=== PATIENT | male | born 1940 | race Caucasian/White ===

== ENCOUNTER 2019-03-09 05:41 | Day surgery (SDC) | payer MEDICARE, BC ==
[2019-03-02 12:32] LABS: BASOPHILS # (AUTO) 0.1 X10'3 (0-0.2); EOSINOPHILS # (AUTO) 0.4 X10'3 (0-0.9); EOSINOPHILS % (AUTO) 7.3 % (0-6); LYMPHOCYTES # (AUTO) 1.5 X10'3 (1.1-4.8); LYMPHOCYTES % (AUTO) 25.3 % (21-51); MEAN CORPUSCULAR HEMOGLOBIN 31.9 PG (27.0-31.0); MEAN CORPUSCULAR HGB CONC 33.3 g/dL (33.0-36.5); MEAN CORPUSCULAR VOLUME 95.9 FL (78-98); MEAN PLATELET VOLUME 8.1 FL (7.4-10.4); MONOCYTES # (AUTO) 0.8 X10'3 (0-0.9); MONOCYTES % (AUTO) 12.6 % (2-12); NEUTROPHILS # (AUTO) 3.2 X10'3 (1.8-7.7); NEUTROPHILS % (AUTO) 53.8 % (42-75); PRE OP HEMATOCRIT 42.3 % (42.0-52.0); PRE OP HEMOGLOBIN 14.1 g/dL (14.0-17.9); PRE OP PLATELET COUNT 303 X10'3 (140-440); RED BLOOD COUNT 4.41 X10'6 (4.70-6.10); RED CELL DISTRIBUTION WIDTH 13.9 % (11.5-14.5)
[2019-03-02 12:43] LABS: ALBUMIN 3.4 G/DL (3.4-5.0); ALBUMIN/GLOBULIN RATIO 0.9 (1.1-1.5); ALKALINE PHOSPHATASE 94 IU/L (46-116); BLOOD UREA NITROGEN 14 MG/DL (7-18); BUN/CREATININE RATIO 16.7 (5.4-32.0); CALCIUM 8.9 MG/DL (8.5-10.1); CHLORIDE 104 MMOL/L (99-107); CREATININE 0.84 MG/DL (0.60-1.10); PRE OP ALT 42 U/L (30-65); PRE OP ANION GAP 3 (8-16); PRE OP AST 32 U/L (10-37); PRE OP BILIRUB, TOTAL 0.8 MG/DL (0.0-1.0); PRE OP GLUCOSE 96 MG/DL (70-104); PRE OP POTASSIUM 3.8 MMOL/L (3.4-5.1); PRE OP SODIUM 140 MMOL/L (135-145); TOTAL CARBON DIOXIDE 32.7 MMOL/L (24-32); eGFR 89 ML/MIN
[2019-03-02 12:53] LABS: PRE OP INR 1.3 INR; PRE OP PROTIME 12.6 SECONDS (9.0-12.0)
[2019-03-09] VITALS (7 sets, daily range): BP systolic 108–119; BP diastolic 69–78
[~2019-03-09] VITALS: Ht 182.9 cm; Wt 76.4 kg
[~2019-03-09 05:41] MED LIST: AMIO200T54 PO; ATOR80TA PO; CALC-995 PO; CYAN100020 PO; EZET10TA14 PO; FOLI1TAB16 PO; NIA500ERT PO; PROP80CA PO; PSYL1CAP3 PO; RIVA20TA PO; VITA400C19 PO; VITC500T PO
[2019-03-09] MEDS ORDERED: ringers solution, lacted 1,000 ML IV SCH ×2 (05:45→08:05)
[2019-03-09] MEDS ORDERED: DOCUMENT DATE & TIME OF BETA-BLOCKER PO ONE (05:45)
[2019-03-09] MEDS ORDERED: ceFAZolin 1GM/D5W- ADD-VANTAGE 50 ML IV ONE (05:45)
[2019-03-09] MEDS ORDERED: famotidine 20mg tablet PO ONE (05:45)
[2019-03-09] MEDS ORDERED: LIDOcaine 1% (10mg/ml) 2ml vial ONE (05:55)
[2019-03-09 06:37] LABS: PRE OP PARTIAL THROMB. TIME 29 SECONDS (22-32)
[2019-03-09] MEDS ORDERED: BUPIVAcaine/PF 2.5mg/ml (0.25%) 10ml vial ONE ×2 (07:13→08:14)
[2019-03-09] MEDS ORDERED: LIDOcaine 1% 30ml preserv. free vial ONE (07:41)
[2019-03-09] MEDS ORDERED: midazolam 2 mg/2 ml injection ONE (07:45)
[2019-03-09] MEDS ORDERED: fentaNYL/PF 50MCG/1 ML 2ML syringe ONE (07:45)
[2019-03-09] MEDS ORDERED: ketorolac trometh. 30mg/ml inj. ONE (07:47)
[2019-03-09] MEDS ORDERED: ondansetron/PF 4mg/2ml inj IV PRN (08:05)
[2019-03-09] MEDS ORDERED: meperidine/PF 25mg/ml syringe IV PRN ×3 (08:05)
[2019-03-09] MEDS ORDERED: proCHLORperazine 10 MG/2 ml inj IV PRN (08:05)
[2019-03-09] MEDS ORDERED: morphine 4 MG/ML inj SYRINge IV PRN ×2 (08:05)
[2019-03-09] MEDS ORDERED: LIDOcaine 2% (20mg/ml) 5ml vial ONE (08:20)
[2019-03-09] MEDS ORDERED: propofol inj 20 ML IV ONE (08:20)
--- NOTE | 2019-03-09 08:34 | NUR ---
Received from OR via [facility] , accompanied by Anesthesiologist GUI and report given by Anesthesiolgist. PATIENT WITH 20G PIV IN LEFT UE RUNNING LR AT 100. DENIES PAIN. SPLINT TO RIGHT HAND IS CDI AND HAS + CAP REFILL. NO DRAINAGE PRESENT. VSS Addendum: 03/09/19 at 0843 by Rigoberto Moore RN, RN Amended: Links added.
--- NOTE | 2019-03-09 09:34 | NUR ---
ALL DC CRITERIA HAS BEEN MET. IV TAKEN OUT WITHOUT COMPLICATIONS. ALL INSTRUCTIONS COVERED AND ALL QUESTIONS ANSWERED. DRESSINGS CDI. OUT VIA WHEELCHAIR TO PERSONAL VEHICLE WHERE PATIENT WAS SECURED IN AND DRIVEN HOME BY FAMILY. ASSISTED IN DRESSING PATIENT AND SHOWED DIFFERENT TECHNIQUE TO ASSIST PATIENT AT HOME. ASSISTED PATIENT INTO VEHICLE AND WAS SECURED IN. Addendum: 03/09/19 at 0942 by Rigoberto Moore RN, RN Amended: Links added.
== END 2019-03-09 09:34 | disposition home or self-care (01) ==
LOC: PAS 05:41
PROVIDERS: ATTEND Orthopaedic Surgery Hand Surgery
DX: M20.021 Boutonniere deformity of right finger(s) (principal); G47.30 Sleep apnea, unspecified; I10 Essential (primary) hypertension; Z88.2 Allergy status to sulfonamides; Z98.890 Other specified postprocedural states; Z96.649 Presence of unspecified artificial hip joint; Z87.891 Personal history of nicotine dependence; I48.91 Unspecified atrial fibrillation; Z85.038 Personal history of other malignant neoplasm of large intestine; Z85.118 Personal history of other malignant neoplasm of bronchus and lung
CPT/HCPCS: 26426; 36415; 80053; 82948; 85025; 85610; 85730; 93005; A6222; C1713; J0690; J1885; J2001; J2250; J2704; J3010; J3490; A6449; J7120